=== PATIENT | female | born 1995 | race Two or more races ===

== ENCOUNTER 2020-10-02 05:17 | Emergency (ER) | payer OTHER ==
[~2020-10-02] VITALS: Ht 157.5 cm; Wt 79.4 kg
--- NOTE | 2020-10-02 06:34 | REPVR ---
PROCEDURE INFORMATION: Exam: XR Chest, 2 Views Exam date and time: 10/02/2020 5:47 AM Age: 25 years old Clinical indication: Cough; Additional info: Dyspnea/cough TECHNIQUE: Imaging protocol: XR of the chest Views: 2 views. COMPARISON: No relevant prior studies available. FINDINGS: Lungs: Unremarkable. No consolidation. Pleural spaces: Unremarkable. No pleural effusion. No pneumothorax. Heart/Mediastinum: Unremarkable. No cardiomegaly. Bones/joints: Unremarkable. Diaphragm: Atypical lucency probably reflecting undulation of the diaphragm or atypical pleural interface on the right medially. IMPRESSION: No acute cardiopulmonary findings. Curvilinear lucency at the medial right hemidiaphragm in the absence of abdominal symptoms probably reflects atypical appearance of pleural interface or undulation of the hemidiaphragm. Further investigation for any abdominal symptoms. Electronically signed by: Lindsey Hunt On 10/02/2020 06:33:39 AM
[2020-10-02 07:41] LABS: BASO % 0.6 % (0.0-1.0); EOS % 0.7 % (0.0-3.0); HEMATOCRIT 39.5 % (36.0-47.0); HEMOGLOBIN 13.1 g/dl (12.0-15.5); LYMPH # 1.9 10^3/uL (1.5-5.0); MEAN CORPUSCULAR HEMOGLOBIN 32.7 pg (27.0-33.0); MEAN CORPUSCULAR HGB CONC 33.2 g/dl (32.0-36.5); MEAN CORPUSCULAR VOLUME 98.5 fl (80.0-96.0); MONO # 0.4 10^3/uL (0.0-0.8); NEUTROPHILS % 55.5 % (36.0-66.0); PLATELET COUNT, AUTOMATED 368 10^3/uL (150-450); RED BLOOD COUNT 4.01 10^6/uL (4.00-5.40); WHITE BLOOD COUNT 5.4 10^3/uL (4.0-10.0)
[2020-10-02 08:14] LABS: ALT/SGPT 48 U/L (12-78); BILIRUBIN,DIRECT 0.2 MG/DL (0.0-0.2); BILIRUBIN,TOTAL 0.8 MG/DL (0.2-1.0); BLOOD UREA NITROGEN 11 MG/DL (7-18); CALCIUM LEVEL 9.4 MG/DL (8.5-10.1); CARBON DIOXIDE LEVEL 25 MEQ/L (21-32); CHLORIDE LEVEL 108 MEQ/L (98-107); CK-MB VALUE MASS 1.4 NG/ML (<3.6); CPK CREATINE PHOSPHOKINASE 817 U/L (26-192); CREATININE FOR GFR 0.81 MG/DL (0.55-1.30); GLOMERULAR FILTRATION RATE > 60.0 (>60); GLUCOSE, FASTING 76 MG/DL (70-100); LIPASE 87 U/L (73-393); MB/CK RELATIVE INDEX 0.17 (< OR =4); POTASSIUM SERUM 3.9 MEQ/L (3.5-5.1); SODIUM LEVEL 141 MEQ/L (136-145); TOTAL PROTEIN 7.7 GM/DL (6.4-8.2); TROPONIN I < 0.02 NG/ML (< 0.10)
[2020-10-02 08:15] LABS: RSV AMPLIFICATION NEGATIVE (NEGATIVE)
--- NOTE | 2020-10-02 09:10 | REP ---
INDICATION: RUQ pain, elevated enzymes COMPARISON: None. TECHNIQUE: Real time de la fuente scale ultrasound examination using curved array transducer. FINDINGS: Liver is normal in contour, size, and echogenicity without focal hepatic lesions identified. Pancreas is incompletely evaluated due to interposed bowel gas. The gallbladder is normal and without gallstones, wall thickening, or pericholecystic fluid. No biliary ductal dilatation is appreciated and the common bile duct measures 3.7 mm diameter. Right kidney is normal in reniform shape without hydronephrosis and measures 9.8 x 5.4 x 4.1 cm. No ascites in the visualized right upper quadrant. IMPRESSION: Normal limited right upper quadrant ultrasound <Electronically signed by Brandon Rogel > 10/02/20 [id number]
[2020-10-02 09:17] VITALS: BP 107/70
--- NOTE | 2020-10-02 19:37 | ECGEPIP ---
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
--- NOTE | 2020-10-03 09:31 | ED PDOC ---
Post-Departure Follow-Up cxr and gb us faxed to [facility] for fu Chavez Haq MD Oct 03, 2020 09:31
== END 2020-10-02 09:23 | disposition home or self-care (01) ==
LOC: M ED 05:17
DX: R06.02 Shortness of breath (principal); R10.11 Right upper quadrant pain

== ENCOUNTER 2021-08-30 17:17 | Emergency (ER) | payer OTHER ==
[~2021-08-30] VITALS: Ht 160 cm; Wt 70.5 kg
[2021-08-31 02:06] VITALS: BP 128/80
== END 2021-08-31 02:10 | disposition home or self-care (01) ==
LOC: M ED 17:17
DX: R06.00 Dyspnea, unspecified (principal); F41.9 Anxiety disorder, unspecified; F17.290 Nicotine dependence, other tobacco product, uncomplicated

== ENCOUNTER → 2022-02-04 | Outpatient (CLI) | payer OTHER | LOC: M CARPUL 09:51 | PROVIDERS: ATTEND Physician Assistant | DX: R06.02 Shortness of breath (principal) ==

== ENCOUNTER → 2022-02-23 | Outpatient (CLI) | payer OTHER | LOC: M CARPUL 15:07 | PROVIDERS: ATTEND Physician Assistant | DX: R06.02 Shortness of breath (principal) ==